=== PATIENT | male | born 1945 | race Caucasian/White ===

== ENCOUNTER → 2019-09-15 | Outpatient (CLI) | payer OTHER ==
--- NOTE | 2019-09-15 11:48 | REPVR ---
PROCEDURE INFORMATION: Exam: MR Cervical Spine Without Contrast Exam date and time: 09/15/2019 10:32 AM Age: 73 years old Clinical indication: Prior surgery; Surgery date: 6+ months; Patient HX: Chronic neck pain, HX fusion several years prior; Additional info: Cervicalgia TECHNIQUE: Imaging protocol: Multiplanar magnetic resonance images of the cervical spine without intravenous contrast. COMPARISON: CR Spine,Cervical 2 or 3 views 11/12/2014 5:19 PM FINDINGS: Exam is somewhat degraded by patient motion artifact, particularly on the axial sequences. C3-C4 and C6-C7 anterior fusion hardware is in place, causing regional streak artifact. There is straightening of the normal cervical lordosis. No spondylolisthesis or compression fractures. Mild multilevel degenerative disc disease with reactive endplate signal changes most pronounced at C7-T1. Marrow signal is otherwise normal. There is no convincing cervical spinal cord signal abnormality within constraints of motion artifact, several areas of questionable cord signal abnormality on the axial sequences are not confidently present on the sagittal sequences which are less motion degraded. At C2-C3, a small posterior disc osteophyte complex is present. Minimal spinal canal narrowing. Mild left neural foraminal narrowing. There is bilateral facetitis with periarticular and marrow edema and small joint effusions. At C3-C4, posterior disc osteophyte complex is present with moderate spinal canal narrowing. Severe bilateral neural foraminal narrowing from uncovertebral and facet hypertrophy. At C4-C5, posterior disc osteophyte complex is present with a moderate spinal canal narrowing. Moderate bilateral neural foraminal narrowing from uncovertebral and facet hypertrophy. At C5-C6, posterior discogenic osteophytes are present with mild spinal canal narrowing. Severe right and moderate left neural foraminal narrowing from uncovertebral and facet hypertrophy. At C6-C7, uncovertebral and ligamentum flavum hypertrophy are present, with mild spinal canal narrowing. Moderate to severe bilateral neural foraminal narrowing. At C7-T1, discogenic osteophytes and ligamentum flavum hypertrophy are present, with moderate to severe spinal canal narrowing. Severe bilateral neural foraminal narrowing. IMPRESSION: Multilevel cervical spine degenerative change most pronounced at C7-T1 with moderate to severe spinal canal narrowing, at C3-C4 and C4-C5 with moderate spinal canal narrowing, and multiple levels of moderate and severe neural foraminal narrowing. There is bilateral facetitis at C2-C3 with periarticular and marrow edema and small joint effusions. Electronically signed by: Bruno Gomez On 09/15/2019 11:47:45 AM
== END ==
LOC: M RAD 08:51
PROVIDERS: ATTEND Family Medicine
DX: M54.2 Cervicalgia (principal)

== ENCOUNTER 2020-09-26 15:16 | Inpatient (IN) | payer OTHER ==
[~2020-09-26] VITALS: Ht 177.8 cm; Wt 76.1 kg
--- NOTE | 2020-09-26 16:01 | REP ---
INDICATION: Altered Mental Status. COMPARISON: None TECHNIQUE: Portable AP view of the chest with the patient sitting. FINDINGS: The lung alexander are clear. Cardiac size is normal. The ethel, mediastinum and skeletal structures are unremarkable. IMPRESSION: Essentially negative portable chest <Electronically signed by Yuri Ochoa > 09/26/20 [id number]
--- NOTE | 2020-09-26 16:18 | REP ---
INDICATION: Altered Mental Status. COMPARISON: None. TECHNIQUE: CT BRAIN PERFORMED IN THE AXIAL PLANE. CORONAL RECONSTRUCTION IMAGES ARE PERFORMED. FINDINGS: There is moderate atrophy. There is periventricular white matter lucency most consistent with chronic periventricular small vessel ischemic change. Focal rounded hypodensities in the right caudate are most consistent with old lacunar infarcts. There appears to be a tiny lacunar infarct in the left basal ganglia. There is no acute intracranial hemorrhage, midline shift or mass effect. No extra-axial fluid collection is seen. The visualized paranasal sinuses and mastoid air cells are clear. IMPRESSION: Chronic ischemic changes with atrophy. No acute intracranial hemorrhage, midline shift or mass effect. <Electronically signed by Yuri Rosen > 09/26/20 [id number]
[2020-09-26 16:35] LABS: BASO % 0.5 % (0.0-1.0); EOS % 0.5 % (0.0-3.0); HEMATOCRIT 35.3 % (42.0-52.0); HEMOGLOBIN 12.1 g/dl (13.5-17.5); LYMPH % 12.5 % (24.0-44.0); MEAN CORPUSCULAR HEMOGLOBIN 30.9 pg (27.0-33.0); MEAN CORPUSCULAR HGB CONC 34.3 g/dl (32.0-36.5); MEAN CORPUSCULAR VOLUME 90.3 fl (80.0-96.0); MONO # 0.8 10^3/uL (0.0-0.8); MONO % 10.5 % (2.0-8.0); NEUTROPHILS # 5.8 10^3/uL (1.5-8.5); NEUTROPHILS % 75.6 % (36.0-66.0); PLATELET COUNT, AUTOMATED 263 10^3/uL (150-450); RED BLOOD COUNT 3.91 10^6/uL (4.30-6.10); WHITE BLOOD COUNT 7.6 10^3/uL (4.0-10.0)
[2020-09-26 17:10] LABS: ALBUMIN 3.2 GM/DL (3.2-5.2); ALT/SGPT 42 U/L (12-78); BILIRUBIN,DIRECT 0.1 MG/DL (0.0-0.2); BILIRUBIN,TOTAL 0.4 MG/DL (0.2-1.0); BLOOD UREA NITROGEN 31 MG/DL (7-18); CALCIUM LEVEL 8.6 MG/DL (8.8-10.2); CARBON DIOXIDE LEVEL 26 MEQ/L (21-32); CHLORIDE LEVEL 105 MEQ/L (98-107); CK-MB VALUE MASS 1.2 NG/ML (<3.6); CPK CREATINE PHOSPHOKINASE 56 U/L (39-308); CREATININE FOR GFR 1.32 MG/DL (0.70-1.30); GLOMERULAR FILTRATION RATE 56.4 (>42); GLUCOSE, FASTING 64 MG/DL (70-100); MB/CK RELATIVE INDEX 2.14 (< OR =4); POTASSIUM SERUM 4.1 MEQ/L (3.5-5.1); SODIUM LEVEL 138 MEQ/L (136-145); TOTAL PROTEIN 6.4 GM/DL (6.4-8.2); TROPONIN I < 0.02 NG/ML (< 0.10)
[2020-09-26] MEDS ORDERED: VALA1TAB5 PO (17:57)
[2020-09-26] MEDS ORDERED: CEPH500C PO (17:57)
[2020-09-26 19:40] LABS: RSV AMPLIFICATION NEGATIVE (NEGATIVE)
--- NOTE | 2020-09-26 19:46 | HPEPDOC ---
General Date of Admission 09/26/20 Date of Service: Sep 26, 2020 Chief Complaint The patient is a 75-year-old male admitted with a reason for visit of low blood sugar. Source: Patient, RN/MD History of Present Illness 75 year old male with PMH of DM, HTN , PTSD, BPH, CAD x stents in 2010, neck pain, Cervical spinal stenosis was brought in today has he was having weakness on the left and slurring of speech and confusion at about 1:30 pm when daughter went to wake hm up from a nap to give him lunch . He had a visit with his PMD at [facility] this morning and after returning from the appointment he was taking a nap. His last oral intake was a hot dog last night and he did not want any breakfast. At around 1:30 pm he could not ambulate and had to be helped by his children with 2 persons assisting to get him out of bed to the living room. His speech was slurred and they could not understand it. Has been recently diagnosed with shingles of the right chest wall 3 days ago. For the past 3 days he has been using a walker also. Daughter also mentions that she has noticed 2 months of severe memory problems, talking slower, lost weight, appetite decreasing. She says " her father is not like her father anymore". He had pain in the back of chest right 7 days ago so starting using heating pad, dermatomal blisters appeared 3 days ago went to [facility] was started on valcyclovir and cephalexin. Since getting out of [facility] he has needed a walker to ambulate. He was admitted for hypoglycemia and TIA rule out possible stroke. Home Medications Scheduled Cephalexin (Cephalexin) 500 Mg Capsule, 500 MG PO TID, (Reported) STARTED 09/25/20 FOR SEVEN DAYS Valacyclovir HCl (Valacyclovir) 1,000 Mg Tablet, 1 GM PO TID, (Reported) STARTED 09/25/20 FOR SEVEN DAYS Allergies Coded Allergies: No Known Drug Allergies (Verified Allergy, Unknown, 09/26/20) Past Medical History Medical History DM, HTN , PTSD, BPH, CAD x stents in 2010, neck pain, Cervical spinal stenosis. Surgical History Cervical spinal surgeries x 2 Family History Mother 3 years ago had Dementia Father stroke Social History * Smoker: Denies, former Smoker (quit in 1986) Alcohol: Denies Drugs: denies A-FIB/CHADSVASC A-FIB History Current/History of A-Fib/PAF?: No Review of Systems Constitutional: Reports: Weakness, Weight Loss; Denies: Chills, Fever, Night Sweats Eyes: Denies: Pain, Vision change ENT: Denies: Head Aches, Ear Pain, Dysphagia Skin: Denies: Rash, Lesions, Breakdown Pulmonary: Denies: Dyspnea, Cough Cardiovascular: Denies: Chest Pain, Palpitations, Orthopnea, Paroxysmal Noc. Dyspnea, Lt Headedness Gastrointestinal: Denies: Nausea, Vomiting, Abdominal Pain, Diarrhea Musculoskeletal: Reports: Neck Pain Neurological: Reports: Weakness, Change in speech, Confusion Psych: Reports: Memory Issues Physical Examination General Exam: Positive: Alert, Cooperative, No Acute Distress Eye Exam: Positive: PERRLA, Conjunctiva & lids normal, EOMI; Negative: Sclera icteric ENT Exam: Positive: Atraumatic, Mucous membr. moist/pink, Pharynx Normal Neck Exam: Positive: Supple; Negative: JVD, thyromegaly Chest Exam: Positive: Clear to auscultation, Normal air movement Heart Exam: Positive: Rate Normal, Regular Rhythm, Normal S1, Normal S2; Negative: Murmurs, Rubs Abdomen Exam: Positive: Normal bowel sounds, Soft; Negative: Tenderness, Hepatospenomegaly Extremity Exam: Positive: Normal pulses; Negative: Clubbing, Cyanosis, Edema Laboratory Data Labs 24H Laboratory Tests 2 09/26/20 16:10: Immature Granulocyte % (Auto) 0.4, Neutrophils (%) (Auto) 75.6H, Lymphocytes (%) (Auto) 12.5L, Monocytes (%) (Auto) 10.5H, Eosinophils (%) (Auto) 0.5, Basophils (%) (Auto) 0.5, Neutrophils # (Auto) 5.8, Lymphocytes # (Auto) 1.0L, Monocytes # (Auto) 0.8, Eosinophils # (Auto) 0.0, Basophils # (Auto) 0.0, Nucleated Red Blood Cells % (auto) 0.0, Anion Gap 7L, Glomerular Filtration Rate 56.4, Calcium Level 8.6L, Total Bilirubin 0.4, Direct Bilirubin 0.1, Aspartate Amino Transf (AST/SGOT) 29, Alanine Aminotransferase (ALT/SGPT) 42, Alkaline Phosphatase 41L, Total Creatine Kinase 56, Creatine Kinase MB 1.2, Creatine Kinase MB Relative Index 2.14, Troponin I < 0.02, Total Protein 6.4, Albumin 3.2, Albumin/Globulin Ratio 1.0, Thyroid Stimulating Hormone (TSH) 1.080 09/26/20 16:12: Bedside Glucose (Misc Panel) 58L 09/26/20 16:38: Bedside Glucose (Misc Panel) 53L 09/26/20 17:15: Bedside Glucose (Misc Panel) 62L CBC/BMP Laboratory Tests 09/26/20 16:10 Assessment/Plan 75 year old male with PMH of DM, HTN , PTSD, BPH, CAD x stents in 2010, neck pain, Cervical spinal stenosis, recently diagnosed with herpes zoster of the right chest wall, was brought in today has he was having weakness on the left and slurring of speech and confusion at about 1:30 pm when daughter went to wake him up from a nap to give him lunch. For the past 3 days he has been having difficulty in ambulation and using a walker. Daughter also reported that for the past 2 months he has been having memory problems, talking slower, lost weight, appetite decreasing. He was found to be hypoglyceic in the 50s. He was admitted for hypoglycemia and TIA rule out possible stroke. Hypoglycemia will start dextrose infusion hypoglycemic protocol FS q4 hours. TIA/Stroke CT head negative will get MRI and MRA brain, carotid doppler, echo with bubble study. doppler of legs also if MRI positive for multiple strokes. will start on ASA and stain if positive for stroke. Cervical spinal stenosis moderate to severe. Now with difficulty in ambulation had cervical surgeries in the past PT/OT, fall precautions. DM hypoglycemic hold all antidiabetic meds Hypertension Bp not elevated . It is in the normal range. not on any medications at present Herpes Zoster of the right chest wall started on valcyclovir on 09/23/20 will continue. also on cephalexin for secondary infection will continue. Plan / VTE VTE Prophylaxis Ordered?: Yes MARY GUTIERREZ MD Sep 26, 2020 17:29
--- NOTE | 2020-09-26 20:18 | REP ---
INDICATION: TIA COMPARISON: None. TECHNIQUE: Real-time ultrasound evaluation and duplex Doppler interrogation of the extracranial carotid vasculature is performed. FINDINGS: Antegrade flow is observed in both vertebral arteries. Right carotid: The right common carotid artery shows diffuse intimal thickening but is otherwise unremarkable. There ismild mixed plaquing in the right carotid bulb and proximal ICA on two-dimensional scanning. Color flow and spectral Doppler interrogation are unremarkable on the right. Velocity chart right carotid: Right CCA PSV: 67 cm/S Right ICA PSV: 60 cm/S Right ICA EDV: 13 cm/S Right ECA PSV: 77 cm/S Right ICA/CCA ratio: 0.9 Left carotid: The left common carotid artery shows diffuse intimal thickening but is otherwise unremarkable. There is mild mixed plaquing in the left carotid bulb and proximal ICA on two-dimensional scanning. Color flow and spectral Doppler interrogation are unremarkable on the left. Velocity chart left carotid: Left CCA PSV: 78 cm/S Left ICA PSV: 72 cm/S Left ICA EDV: 7.3 cm/S Left ECA PSV: 77 cm/S Left ICA/CCA ratio: 0.9 IMPRESSION: Less than 50% category narrowing in the right internal carotid artery by Doppler velocity criteria. Less than 50% category narrowing in the left ICA by Doppler velocity criteria. <Electronically signed by Jim Fontaine > 09/26/202013
[2020-09-26 21:45] VITALS: BP 119/76
[2020-09-26] MEDS: D5W 1,000 ML IV SCH (22:00)
[2020-09-26] MEDS: CEPHALEXIN 500 MG CAP PO SCH (22:09)
[2020-09-26] MEDS: valACYclovir HCL 500 MG TAB PO SCH (22:09)
[2020-09-26] MEDS ORDERED: DEXTROSE 50% 50 ML SYRINGE As Ordered ONE (22:31)
--- NOTE | 2020-09-26 22:38 | ECGEPIP ---
[facility] - ED Test Date: 2020-09-26 Pat Name: NATY KASPER Department: Room: - Gender: Male Manager Instrumentation: MABEL : 1945 Requested By: Ligia Iverson Order Number: [id number] Reading MD: Matthew Rebolledo Measurements Intervals [place] Rate: 79 P: 67 WA: 138 QRS: -9 QRSD: 84 T: 68 QT: 346 QTc: 396 Interpretive Statements Sinus rhythm with frequent premature ventricular complexes Nonspecific T wave abnormality Comparison tracing not on file Electronically Signed on 09-26-2020 22:38:23 EDT by Matthew Rebolledo
[2020-09-26] MEDS ORDERED: GLUCAGON INJ 1MG VIAL SC PRN (22:40)
[2020-09-26] MEDS ORDERED: GLUCOSE 4GM CHEW TABLET PO PRN (22:40)
[2020-09-26] MEDS ORDERED: DEXTROSE 50% 50 ML SYRINGE IV PRN (22:40)
--- NOTE | 2020-09-26 23:01 | REPVR ---
PROCEDURE INFORMATION: Exam: MR Head Without Contrast Exam date and time: 09/26/2020 9:54 PM Age: 75 years old Clinical indication: Altered mental status/memory loss; Confusion or disorientation; Additional info: Tia/stroke TECHNIQUE: Imaging protocol: MR of the head without contrast. COMPARISON: CT Head without contrast 2020-09-26 15:44 FINDINGS: Brain: Several small recent appearing lacunar infarcts including in the left parietal lateral subcortical white matter, right caudate and putaminal region, and left globus pallidus/putaminal junction. Moderate cerebral volume loss. Moderate severe chronic T2 signal hyperintensity within the white matter. Minimal if any corresponding ADC hypointensity to the regions of diffusion restriction. Chronic corpus callosal anterior infarct. Intrinsic T1 shortening within the right basal ganglia compatible with mineralization. Numerous chronic right basal ganglia lacunar infarcts. Cerebral ventricles: Normal. No ventriculomegaly. Bones/joints: Unremarkable. Paranasal sinuses: Normal as visualized. No acute sinusitis. Mastoid air cells: Normal as visualized. No mastoid effusion. Orbital cavity: Unremarkable. Soft tissues: Unremarkable. IMPRESSION: Several small recent acute/subacute appearing lacunar infarcts including in the left parietal lateral subcortical white matter, right caudate and putaminal region, and left globus pallidus/putaminal junction. Electronically signed by: Matthew Thomas On 09/26/2020 23:00:41 PM
--- NOTE | 2020-09-26 23:03 | REPVR ---
PROCEDURE INFORMATION: Exam: MR Angiogram Head Without Contrast, Arteries Exam date and time: 09/26/2020 9:54 PM Age: 75 years old Clinical indication: Dizziness and giddiness; Additional info: Tia/stroke, mri on neck please add on. TECHNIQUE: Imaging protocol: MR angiogram head without contrast. Exam focused on the arteries. COMPARISON: CT Head without contrast 2020-09-26 15:44 FINDINGS: ANTERIOR CIRCULATION: Right internal carotid artery: Intracranial segment is patent with no significant stenosis. No aneurysm. Right middle cerebral artery: Mild right MCA stenosis. Right anterior cerebral artery: Aplastic right SANJUANA A1 segment with a large anterior communicating artery supplying the A2 segment. Left internal carotid artery: Intracranial segment is patent with no significant stenosis. No aneurysm. Left middle cerebral artery: Moderate left MCA M2 branch stenosis. Left anterior cerebral artery: No occlusion or significant stenosis. No aneurysm. POSTERIOR CIRCULATION: Right vertebral artery: Mild right vertebral artery atherosclerotic disease and mild to moderate stenosis with the right vertebral artery terminating in the PICA branch. Left vertebral artery: No occlusion or significant stenosis. No aneurysm. Basilar artery: No occlusion or significant stenosis. No aneurysm. Right posterior cerebral artery: Severe stenosis/near occlusion within the right [employer] P2 segment in the ambient cistern on image 1 series 901 for a short segment of a couple mm. Left posterior cerebral artery: No occlusion or significant stenosis. No aneurysm. IMPRESSION: 1. Mild right vertebral artery atherosclerotic disease and mild to moderate stenosis with the right vertebral artery terminating in the PICA branch. 2. 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 3. Moderate left MCA M2 branch stenosis. Mild right MCA stenosis. 4. Severe stenosis/near occlusion within the right [employer] P2 segment in the ambient cistern on image 1 series 901 for a short segment of a couple mm. Electronically signed by: Matthew Thomas On 09/26/2020 23:03:42 PM
[2020-09-27 06:00] VITALS: BP 127/76
[2020-09-27 06:29] LABS: BASO # 0.1 10^3/uL (0.0-0.2); BASO % 0.9 % (0.0-1.0); EOS # 0.2 10^3/uL (0.0-0.5); EOS % 2.2 % (0.0-3.0); HEMATOCRIT 33.7 % (42.0-52.0); HEMOGLOBIN 11.6 g/dl (13.5-17.5); LYMPH # 0.9 10^3/uL (1.5-5.0); LYMPH % 11.5 % (24.0-44.0); MEAN CORPUSCULAR HEMOGLOBIN 30.6 pg (27.0-33.0); MEAN CORPUSCULAR HGB CONC 34.4 g/dl (32.0-36.5); MEAN CORPUSCULAR VOLUME 88.9 fl (80.0-96.0); MONO % 12.3 % (2.0-8.0); NEUTROPHILS % 72.7 % (36.0-66.0); PLATELET COUNT, AUTOMATED 264 10^3/uL (150-450); RED BLOOD COUNT 3.79 10^6/uL (4.30-6.10); WHITE BLOOD COUNT 8.2 10^3/uL (4.0-10.0)
[2020-09-27 06:43] LABS: HEMOGLOBIN A1c 6.1 %
[2020-09-27 07:00] LABS: BLOOD UREA NITROGEN 25 MG/DL (7-18); CALCIUM LEVEL 8.7 MG/DL (8.8-10.2); CARBON DIOXIDE LEVEL 24 MEQ/L (21-32); CHLORIDE LEVEL 107 MEQ/L (98-107); CREATININE FOR GFR 1.25 MG/DL (0.70-1.30); GLOMERULAR FILTRATION RATE > 60.0 (>42); GLUCOSE, FASTING 57 MG/DL (70-100); POTASSIUM SERUM 3.8 MEQ/L (3.5-5.1); SODIUM LEVEL 136 MEQ/L (136-145)
[2020-09-27 07:03] LABS: CHOLESTEROL RISK RATIO 4.937 (<5)
[2020-09-27] MEDS: ENOXAPARIN 40MG/0.4ML SYRINGE (J1650 PER 10MG) SC SCH (09:37)
[2020-09-27] MEDS: ASPIRIN 81 MG CHEW TABLET PEG SCH (09:37)
[2020-09-27] MEDS: valACYclovir HCL 500 MG TAB PO SCH ×3 (09:37→21:05)
[2020-09-27] MEDS: CEPHALEXIN 500 MG CAP PO SCH ×3 (09:37→21:05)
[2020-09-27] MEDS: ATORVASTATIN 20 MG TAB PO SCH (09:37)
[2020-09-27] MEDS: D5W 1,000 ML IV SCH (09:38)
[2020-09-27 10:00] VITALS: BP 130/69
[2020-09-27] MEDS: DEXTROSE 50% 50 ML SYRINGE IV SCH ×3 (12:14→21:05)
[2020-09-27 14:00] VITALS: BP 152/88
[2020-09-27] MEDS ORDERED: CLOPIDOGREL 75 MG TAB PO ONE (18:30)
--- NOTE | 2020-09-27 21:04 | IPNPDOC ---
Subjective Date Seen The patient was seen on 09/27/20. Subjective Chief Complaint/HPI Continues to have hypoglycemia requiring 50% dex injections. MRI shows multiple lacunar infarcts acute and subacute on both the right and left sides. MRA shows stenosis in multiple intracerebral vessels. Working with PT. Does not have any weakness, does not have any swallowing difficulties. Objective Physical Examination General Exam: Positive: Alert, Cooperative, No Acute Distress Eye Exam: Positive: PERRLA, Conjunctiva & lids normal, EOMI; Negative: Sclera icteric ENT Exam: Positive: Atraumatic, Mucous membr. moist/pink, Pharynx Normal Neck Exam: Positive: Supple; Negative: JVD, thyromegaly Chest Exam: Positive: Clear to auscultation, Normal air movement Heart Exam: Positive: Rate Normal, Regular Rhythm, Normal S1, Normal S2; Negative: Murmurs, Rubs Abdomen Exam: Positive: Normal bowel sounds, Soft; Negative: Tenderness, Hepatospenomegaly Extremity Exam: Negative: Clubbing, Cyanosis, Edema Neuro Exam: Positive: Normal Speech, Strength at 5/5 X4 ext, Normal Tone Assessment /Plan Assessment 75 year old male with PMH of DM, HTN , PTSD, BPH, CAD x stents in 2010, neck pain, Cervical spinal stenosis, recently diagnosed with herpes zoster of the right chest wall, was brought in today has he was having weakness on the left and slurring of speech and confusion at about 1:30 pm when daughter went to wake him up from a nap to give him lunch. For the past 3 days he has been having difficulty in ambulation and using a walker. Daughter also reported that for the past 2 months he has been having memory problems, talking slower, lost weight, appetite decreasing. He was found to be hypoglyceic in the 50s. He was admitted for hypoglycemia and TIA rule out possible stroke. Persistent Hypoglycemia a1c 6.1 as per daughter used to be over 9.0 few months ago Has been having low appetite for at least 2 months and has lost weight more than 10 lbs. Used to be 180 lbs. FS q4 hours. Continue 50% dextrose 25 ml q 4 hours with hold parameters. Acute ischemic Strokes MRI shows Several small recent acute/subacute appearing lacunar infarcts including in the left parietal lateral subcortical white matter, right caudate and putaminal region, and left globus pallidus/putaminal junction MRA showed 1. Mild right vertebral artery atherosclerotic disease and mild to moderate stenosis with the right vertebral artery terminating in the PICA branch. 2. 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 3. Moderate left MCA M2 branch stenosis. Mild right MCA stenosis. 4. Severe stenosis/near occlusion within the right [place] P2 segment in the ambient cistern on image 1 series 901 for a short segment of a couple mm. Carotid doppler < 50% occlusion in both sides. Bubble study negative telemetry no arrhythmias till now. Discussed with Dr Portillo. He thinks that these are embolic strokes will double antiplatelet and statin started on ASA and Plavix and statin. Cervical spinal stenosis moderate to severe. Now with difficulty in ambulation had cervical surgeries in the past PT/OT, fall precautions. DM hypoglycemic hold all antidiabetic meds Hypertension will allow permissive hypertension of SBP 140 to 180 Bp remains in appropriate range not on any medications at present Herpes Zoster of the right chest wall started on valcyclovir on 09/25/20 will continue. also on cephalexin for secondary infection will continue. Plan/VTE VTE Prophylaxis Ordered?: Yes VS, I&O, 24H, Fishbone Vital Signs/I&O Vital Signs Date Time Temp Pulse Resp B/P (MAP) Pulse Ox O2 Delivery O2 Flow Rate FiO2 09/27/20 14:00 97.9 82 18 152/88 (109) 96 Room Air I&O- Last 24 Hours up to 6 AM 09/27/20 06:59 Intake Total 200 ml Balance 200 ml Laboratory Data 24H LABS Laboratory Tests 2 09/26/20 21:54: Bedside Glucose (Misc Panel) 33*L 09/26/20 22:14: Bedside Glucose Confirm (Misc) 53 09/26/20 22:27: Bedside Glucose (Misc Panel) 38*L 09/26/20 22:57: Bedside Glucose (Misc Panel) 78L 09/27/20 02:25: Bedside Glucose (Misc Panel) 40L 09/27/20 02:43: Bedside Glucose Confirm (Misc) 44 09/27/20 03:17: Bedside Glucose (Misc Panel) 57L 09/27/20 03:53: Bedside Glucose (Misc Panel) 78L 09/27/20 05:54: Bedside Glucose (Misc Panel) 57L 09/27/20 06:13: Immature Granulocyte % (Auto) 0.4, Neutrophils (%) (Auto) 72.7H, Lymphocytes (%) (Auto) 11.5L, Monocytes (%) (Auto) 12.3H, Eosinophils (%) (Auto) 2.2, Basophils (%) (Auto) 0.9, Neutrophils # (Auto) 6.0, Lymphocytes # (Auto) 0.9L, Monocytes # (Auto) 1.0H, Eosinophils # (Auto) 0.2, Basophils # (Auto) 0.1, Nucleated Red Blood Cells % (auto) 0.0, Anion Gap 5L, Glomerular Filtration Rate > 60.0, Estimated Mean Plasma Glucose 128H, Hemoglobin A1c 6.1, Calcium Level 8.7L, Triglycerides Level 133, Total Cholesterol 158, LDL Cholesterol 99, Non-HDL Cholesterol (LDL + VLDL) 126, Total HDL Cholesterol 32L, Cholesterol/HDL Ratio 4.937 09/27/20 08:01: Bedside Glucose (Misc Panel) 54L 09/27/20 08:38: Bedside Glucose (Misc Panel) 61L 09/27/20 11:58: Bedside Glucose (Misc Panel) 87 09/27/20 16:25: Bedside Glucose (Misc Panel) 92 09/27/20 20:40: Bedside Glucose (Misc Panel) 101 CBC/BMP Laboratory Tests 09/27/20 06:13 MARY GUTIERREZ MD Sep 27, 2020 21:04
[2020-09-27 22:00] VITALS: BP 155/84
[2020-09-27] MEDS ORDERED: ACETAMINOPHEN TAB 650MG DOSE (2X325MG) PO ONE (23:40)
[2020-09-28] MEDS: DEXTROSE 50% 50 ML SYRINGE IV SCH ×7 (00:05→23:55)
[2020-09-28 06:00] VITALS: BP 143/74
[2020-09-28] MEDS ORDERED: ACETAMINOPHEN TAB 650MG DOSE (2X325MG) PO ONE (06:15)
[2020-09-28 06:27] LABS: BASO # 0.1 10^3/uL (0.0-0.2); BASO % 0.8 % (0.0-1.0); EOS # 0.2 10^3/uL (0.0-0.5); EOS % 1.9 % (0.0-3.0); HEMATOCRIT 34.4 % (42.0-52.0); HEMOGLOBIN 11.9 g/dl (13.5-17.5); LYMPH % 9.7 % (24.0-44.0); MEAN CORPUSCULAR HEMOGLOBIN 30.4 pg (27.0-33.0); MEAN CORPUSCULAR HGB CONC 34.6 g/dl (32.0-36.5); MONO # 1.1 10^3/uL (0.0-0.8); MONO % 10.4 % (2.0-8.0); NEUTROPHILS # 8.1 10^3/uL (1.5-8.5); NEUTROPHILS % 76.6 % (36.0-66.0); PLATELET COUNT, AUTOMATED 296 10^3/uL (150-450); RED BLOOD COUNT 3.91 10^6/uL (4.30-6.10); WHITE BLOOD COUNT 10.6 10^3/uL (4.0-10.0)
[2020-09-28 06:57] LABS: BLOOD UREA NITROGEN 20 MG/DL (7-18); CALCIUM LEVEL 8.6 MG/DL (8.8-10.2); CARBON DIOXIDE LEVEL 24 MEQ/L (21-32); CHLORIDE LEVEL 107 MEQ/L (98-107); GLOMERULAR FILTRATION RATE > 60.0 (>42); GLUCOSE, FASTING 147 MG/DL (70-100); POTASSIUM SERUM 4.2 MEQ/L (3.5-5.1); SODIUM LEVEL 137 MEQ/L (136-145)
[2020-09-28] MEDS: ASPIRIN 81 MG CHEW TABLET PEG SCH (08:40)
[2020-09-28] MEDS: ATORVASTATIN 20 MG TAB PO SCH (08:40)
[2020-09-28] MEDS: CEPHALEXIN 500 MG CAP PO SCH ×3 (08:40→20:00)
[2020-09-28] MEDS: CLOPIDOGREL 75 MG TAB PO SCH (08:41)
[2020-09-28] MEDS: valACYclovir HCL 500 MG TAB PO SCH ×3 (08:41→20:00)
[2020-09-28] MEDS: ENOXAPARIN 40MG/0.4ML SYRINGE (J1650 PER 10MG) SC SCH (08:41)
--- NOTE | 2020-09-28 10:34 | IPNPDOC ---
Subjective Date Seen The patient was seen on 09/28/20. Subjective Chief Complaint/HPI Sugars better today. Complains of right wrist pain. eating better, Objective Physical Examination General Exam: Positive: Alert, Cooperative, No Acute Distress Eye Exam: Positive: PERRLA, Conjunctiva & lids normal, EOMI; Negative: Sclera icteric ENT Exam: Positive: Atraumatic, Mucous membr. moist/pink, Pharynx Normal Neck Exam: Positive: Supple; Negative: JVD, thyromegaly Chest Exam: Positive: Clear to auscultation, Normal air movement Heart Exam: Positive: Rate Normal, Regular Rhythm, Normal S1, Normal S2; Negative: Murmurs, Rubs Abdomen Exam: Positive: Normal bowel sounds, Soft; Negative: Tenderness, Hepatospenomegaly Extremity Exam: Negative: Clubbing, Cyanosis, Edema Neuro Exam: Positive: Normal Speech, Strength at 5/5 X4 ext, Normal Tone Assessment /Plan Assessment 75 year old male with PMH of DM, HTN , PTSD, BPH, CAD x stents in 2010, neck pain, Cervical spinal stenosis, recently diagnosed with herpes zoster of the right chest wall, was brought in today has he was having weakness on the left and slurring of speech and confusion at about 1:30 pm when daughter went to wake him up from a nap to give him lunch. For the past 3 days he has been having difficulty in ambulation and using a walker. Daughter also reported that for the past 2 months he has been having memory problems, talking slower, lost weight, appetite decreasing. He was found to be hypoglycemic in the 50s. He was admitted for hypoglycemia and TIA rule out possible stroke. Persistent Hypoglycemia a1c 6.1. As per daughter used to be over 9.0 few months ago Has been having low appetite for at least 2 months and has lost weight more than 10 lbs. Used to be 180 lbs. FS q4 hours. Continue 50% dextrose 25 ml q 4 hours with hold parameters. Acute ischemic Strokes MRI shows Several small recent acute/subacute appearing lacunar infarcts including in the left parietal lateral subcortical white matter, right caudate and putaminal region, and left globus pallidus/putaminal junction MRA showed 1. Mild right vertebral artery atherosclerotic disease and mild to moderate stenosis with the right vertebral artery terminating in the PICA branch. 2. Aplastic right SANJAUNA A1 segment with a large anterior communicating artery supplying the A2 segment. 3. Moderate left MCA M2 branch stenosis. Mild right MCA stenosis. 4. Severe stenosis/near occlusion within the right [employer]ING P2 segment in the ambient cistern on image 1 series 901 for a short segment of a couple mm. Carotid doppler < 50% occlusion in both sides. Bubble study negative telemetry no arrhythmias till now. Discussed with Dr Portillo. He thinks that these are embolic strokes will need double antiplatelet and statin started on ASA and Plavix and statin. Will need referral to Cardiology for assessment for loop recorder placement. [facility] so may need [facility] for specialist visits. Cervical spinal stenosis moderate to severe. Now with difficulty in ambulation had cervical surgeries in the past PT/OT, fall precautions. DM hypoglycemic hold all antidiabetic meds Hypertension will allow permissive hypertension of SBP 140 to 180 Bp remains in appropriate range not on any medications at present Herpes Zoster of the right chest wall started on valcyclovir on 09/25/20 will continue. also on cephalexin for secondary infection will continue. Plan/VTE VTE Prophylaxis Ordered?: Yes VS, I&O, 24H, [facility] Vital Signs/I&O Vital Signs Date Time Temp Pulse Resp B/P (MAP) Pulse Ox O2 Delivery O2 Flow Rate FiO2 09/28/20 06:00 98.1 83 17 143/74 (97) 99 Room Air I&O- Last 24 Hours up to 6 AM 09/28/20 06:00 Intake Total 1305 ml Balance 1305 ml Laboratory Data 24H LABS Laboratory Tests 2 09/27/20 11:58: Bedside Glucose (Misc Panel) 87 09/27/20 16:25: Bedside Glucose (Misc Panel) 92 09/27/20 20:40: Bedside Glucose (Misc Panel) 101 09/28/20 00:04: Bedside Glucose (Misc Panel) 108 09/28/20 04:16: Bedside Glucose (Misc Panel) 108 09/28/20 06:13: Immature Granulocyte % (Auto) 0.6, Neutrophils (%) (Auto) 76.6H, Lymphocytes (%) (Auto) 9.7L, Monocytes (%) (Auto) 10.4H, Eosinophils (%) (Auto) 1.9, Basophils (%) (Auto) 0.8, Neutrophils # (Auto) 8.1, Lymphocytes # (Auto) 1.0L, Monocytes # (Auto) 1.1H, Eosinophils # (Auto) 0.2, Basophils # (Auto) 0.1, Nucleated Red Blood Cells % (auto) 0.0, Anion Gap 6L, Glomerular Filtration Rate > 60.0, Calcium Level 8.6L 09/28/20 08:03: Bedside Glucose (Misc Panel) 135H CBC/BMP Laboratory Tests 09/28/20 06:13 MARY GUTIERREZ MD Sep 28, 2020 10:34
[2020-09-28 14:00] VITALS: BP 146/77
[2020-09-28 22:00] VITALS: BP 155/85
[2020-09-29] MEDS: DEXTROSE 50% 50 ML SYRINGE IV SCH ×3 (04:00→12:00)
[2020-09-29 06:00] VITALS: BP 133/77
[2020-09-29 06:12] LABS: BASO # 0.1 10^3/uL (0.0-0.2); BASO % 0.8 % (0.0-1.0); EOS % 0.4 % (0.0-3.0); HEMATOCRIT 36.5 % (42.0-52.0); HEMOGLOBIN 12.3 g/dl (13.5-17.5); LYMPH # 1.3 10^3/uL (1.5-5.0); MEAN CORPUSCULAR HEMOGLOBIN 30.1 pg (27.0-33.0); MEAN CORPUSCULAR HGB CONC 33.7 g/dl (32.0-36.5); MEAN CORPUSCULAR VOLUME 89.5 fl (80.0-96.0); MONO # 1.4 10^3/uL (0.0-0.8); MONO % 12.9 % (2.0-8.0); NEUTROPHILS # 7.8 10^3/uL (1.5-8.5); NEUTROPHILS % 73.1 % (36.0-66.0); PLATELET COUNT, AUTOMATED 308 10^3/uL (150-450); RED BLOOD COUNT 4.08 10^6/uL (4.30-6.10); WHITE BLOOD COUNT 10.7 10^3/uL (4.0-10.0)
[2020-09-29 06:26] LABS: CALCIUM LEVEL 8.5 MG/DL (8.8-10.2); CREATININE FOR GFR 1.3 MG/DL (0.70-1.30); GLOMERULAR FILTRATION RATE 57.4 (>42)
--- NOTE | 2020-09-29 08:43 | ECHO ---
DATE OF PROCEDURE: 09/26/2020 Age: 74 Gender: Male Height: 177 cm Weight: 75.8 kg REFERRING PHYSICIAN: Maya Anthony MD INDICATION: Transient cerebral ischemia, unspecified. MEASUREMENTS: 2D Measurements: Left ventricle diastole 4.0 cm Intraventricular septum 1.24 cm Posterior wall 1.52 cm Left atrium 3.8 cm Aortic root 3.5 cm Doppler Measurements: No aortic stenosis No aortic regurgitation Aortic valve velocity 169 cm/s LVOT velocity 104 cm/s Trace mitral regurgitation Mitral E velocity 59.1 cm/s Mitral A velocity 75.5 cm/s Mitral deceleration time 248 msec Trace tricuspid regurgitation No pulmonic regurgitation Pulmonary artery acceleration time 106 msec MITRAL ANNULAR TISSUE DOPPLER E prime septal 4.1 cm/s, E prime lateral 8.8 cm/s DESCRIPTION: Rhythm was sinus. Image quality was good. This was a 2D, M-mode, color flow Doppler, and pulsed wave Doppler examination. Occasional PVCs. Technically difficult subcostal window. No pericardial effusion. CONCLUSIONS: 1. Mild concentric left ventricular hypertrophy. Normal regional LV wall motion and wall thickening. Normal LV systolic function. LVEF 65% by visual estimate. Grade 1 LV diastolic dysfunction. 2. Negative bubble study for detection of intracardiac shunting. 3. Suggestive of mild elevation of pulmonary artery systolic pressure. 4. Mild aortic valve sclerosis of a 3-cuspid aortic valve. No regurgitation. 5. Otherwise normal appearing echocardiogram Doppler findings. MTDD
[2020-09-29] MEDS: ENOXAPARIN 40MG/0.4ML SYRINGE (J1650 PER 10MG) SC SCH (09:00)
[2020-09-29] MEDS: valACYclovir HCL 500 MG TAB PO SCH ×3 (09:00→21:02)
[2020-09-29] MEDS: ATORVASTATIN 20 MG TAB PO SCH (09:01)
[2020-09-29] MEDS: CLOPIDOGREL 75 MG TAB PO SCH (09:01)
[2020-09-29] MEDS: ASPIRIN 81 MG CHEW TABLET PEG SCH (09:01)
[2020-09-29] MEDS: CEPHALEXIN 500 MG CAP PO SCH ×3 (09:01→21:02)
[2020-09-29] MEDS ORDERED: ATOR1TAB21 PO (11:37)
[2020-09-29] MEDS ORDERED: ASPI81CH8 PEG (11:37)
[2020-09-29] MEDS ORDERED: CLOP75TA2 PO (11:37)
--- NOTE | 2020-09-29 11:39 | DS.PDOC ---
Discharge Summary General Date of Admission Sep 27, 2020 at 20:42 Date of Discharge 09/29/2020 Attending Physician: TYLER TORRES MD Discharge Summary PROCEDURES PERFORMED DURING STAY: None ADMITTING DIAGNOSES: TIA DISCHARGE DIAGNOSES: Acute/subacute appearing lacunar ischemic infarcts including in the left parietal lateral subcortical white matter, right caudate and putaminal region, and left globus pallidus/putaminal junction, mostly likely embolic in nature. DM HTN PTSD BPH CAD x stents in 2010 Cervical spinal stenosis COMPLICATIONS/CHIEF COMPLAINT: Hypoglcemia,Tia. HISTORY OF PRESENT ILLNESS: 75 year old M with PMH of DM, HTN , PTSD, BPH, CAD x stents in 2010, neck pain, Cervical spinal stenosis was brought for acute weakness on the left and slurring of speech and confusion when daughter went to wake him up from a nap to give him lunch. He had a visit with his PMD at [place] on the morning of ED presentation and after returning from the appointment he took a nap. At around 1:30 pm on the day of presentation he could not ambulate and had to be helped by his children with 2 persons assisting to get him out of bed to the living room. His speech was slurred and they could not understand it. He had been recently diagnosed with shingles of the right chest wall 3 days prior. On further inquiry, daughter reported 2 months of severe memory problems, talking slower, lost weight and poor PO. He had pain in the back of right chest7 days and dermatomal blisters appeared 3 days prior to presentation and they went to [facility] were he was started on valcyclovir and cephalexin. Since getting out of [facility] he has needed a walker to ambulate. He was admitted at [facility] hypoglycemia and TIA rule out possible stroke. He had an MRI of brain that revealed multihemispheric lacunar infarcts that appeared embolic in nature, while MRA showed 1. Mild right vertebral artery atherosclerotic disease and mild to moderate stenosis with the right vertebral artery terminating in the PICA branch. 2. 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 3. Moderate left MCA M2 branch stenosis. Mild right MCA stenosis. 4. Severe stenosis/near occlusion within the right SUPER[employer]MENT P2 segment in the ambient cistern on image 1 series 901 for a short segment of a couple mm. Carotid doppler US showed < 50% occlusion in both sides and TTE with bubble study was negative for shunt physiology. Telemetry also maintained NSR. Neurology was consulted and Dr. Portillo recommended DAPT and ASA 81. He was continued on valcyclovir and cephalexin and he worked with PT/OT with improvement in speech and motor function. He is now being discharged home with home PT and close PCP follow up as well cardiology follow up for perhaps loop recorder given likely embolic stroke. DISCHARGE MEDICATIONS: Please see below. ALLERGIES: Please see below. PHYSICAL EXAMINATION ON DISCHARGE: VITAL SIGNS: Please see below. General: Alert, Cooperative, No Acute Distress Eyes: PERRLA, Conjunctiva & lids normal, EOMI, anicteric ENT: Atraumatic, Mucous membr. moist/pink, Pharynx Normal Neck: Supple, no JVD or thyromegaly Chest: Clear to auscultation, Normal air movement Heart: Rate Normal, Regular Rhythm, Normal S1, Normal S2, no m/r/g Abdomen: Normal bowel sounds, soft, NTND Extremities: No Clubbing, Cyanosis or Edema Neuro: Positive: Normal Speech, Strength at 5/5 X4 ext, Normal Tone and sensation LABORATORY DATA: Please see below. IMAGING: CT head: There is moderate atrophy. There is periventricular white matter lucency most consistent with chronic periventricular small vessel ischemic change. Focal rounded hypodensities in the right caudate are most consistent with old lacunar infarcts. There appears to be a tiny lacunar infarct in the left basal ganglia. There is no acute intracranial hemorrhage, midline shift or mass effect. No extra-axial fluid collection is seen. The visualized paranasal sinuses and mastoid air cells are clear. IMPRESSION: Chronic ischemic changes with atrophy. No acute intracranial hemorrhage, midline shift or mass effect. CXR: The lung alexander are clear. Cardiac size is normal. The ethel, mediastinum and skeletal structures are unremarkable. IMPRESSION: Essentially negative portable chest Brain MRI w/o contrast: Brain: Several small recent appearing lacunar infarcts including in the left parietal lateral subcortical white matter, right caudate and putaminal region, and left globus pallidus/putaminal junction. Moderate cerebral volume loss. Moderate severe chronic T2 signal hyperintensity within the white matter. Minimal if any corresponding ADC hypointensity to the regions of diffusion restriction. Chronic corpus callosal anterior infarct. Intrinsic T1 shortening within the right basal ganglia compatible with mineralization. Numerous chronic right basal ganglia lacunar infarcts. Cerebral ventricles: Normal. No ventriculomegaly. Bones/joints: Unremarkable. Paranasal sinuses: Normal as visualized. No acute sinusitis. Mastoid air cells: Normal as visualized. No mastoid effusion. Orbital cavity: Unremarkable. Soft tissues: Unremarkable. IMPRESSION: Several small recent acute/subacute appearing lacunar infarcts including in the left parietal lateral subcortical white matter, right caudate and putaminal region, and left globus pallidus/putaminal junction. Brain MRA w/o contrast: FINDINGS: ANTERIOR CIRCULATION: Right internal carotid artery: Intracranial segment is patent with no significant stenosis. No aneurysm. Right middle cerebral artery: Mild right MCA stenosis. Right anterior cerebral artery: Aplastic right SANJUANA A1 segment with a large anterior communicating artery supplying the A2 segment. Left internal carotid artery: Intracranial segment is patent with no significant stenosis. No aneurysm. Left middle cerebral artery: Moderate left MCA M2 branch stenosis. Left anterior cerebral artery: No occlusion or significant stenosis. No aneurysm. POSTERIOR CIRCULATION: Right vertebral artery: Mild right vertebral artery atherosclerotic disease and mild to moderate stenosis with the right vertebral artery terminating in the PICA branch. Left vertebral artery: No occlusion or significant stenosis. No aneurysm. Basilar artery: No occlusion or significant stenosis. No aneurysm. Right posterior cerebral artery: Severe stenosis/near occlusion within the right [employer]MENT P2 segment in the ambient cistern on image 1 series 901 for a short segment of a couple mm. Left posterior cerebral artery: No occlusion or significant stenosis. No aneurysm. IMPRESSION: 1. Mild right vertebral artery atherosclerotic disease and mild to moderate stenosis with the right vertebral artery terminating in the PICA branch. 2. 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 3. Moderate left MCA M2 branch stenosis. Mild right MCA stenosis. 4. Severe stenosis/near occlusion within the right [employer]PER[employer]MENT P2 segment in the ambient cistern on image 1 series 901 for a short segment of a couple mm. Carotid doppler US: Antegrade flow is observed in both vertebral arteries. Right carotid: The right common carotid artery shows diffuse intimal thickening but is otherwise unremarkable. There ismild mixed plaquing in the right carotid bulb and proximal ICA on two-dimensional scanning. Color flow and spectral Doppler interrogation are unremarkable on the right. Velocity chart right carotid: Right CCA PSV: 67 cm/S Right ICA PSV: 60 cm/S Right ICA EDV: 13 cm/S Right ECA PSV: 77 cm/S Right ICA/CCA ratio: 0.9 Left carotid: The left common carotid artery shows diffuse intimal thickening but is otherwise unremarkable. There is mild mixed plaquing in the left carotid bulb and proximal ICA on two-dimensional scanning. Color flow and spectral Doppler interrogation are unremarkable on the left. Velocity chart left carotid: Left CCA PSV: 78 cm/S Left ICA PSV: 72 cm/S Left ICA EDV: 7.3 cm/S Left ECA PSV: 77 cm/S Left ICA/CCA ratio: 0.9 IMPRESSION: Less than 50% category narrowing in the right internal carotid artery by Doppler velocity criteria. Less than 50% category narrowing in the left ICA by Doppler velocity criteria. PROGNOSIS: Good ACTIVITY: As tolerated DIET: 2g sodium DISCHARGE PLAN: Home with home PT, DAPT, PCP and cardiology follow up DISPOSITION: Home with services DISCHARGE INSTRUCTIONS: Home with home PT, DAPT, PCP and cardiology follow up ITEMS TO FOLLOWUP ON ON OUTPATIENT: Embolic lacunar CVAs DISCHARGE CONDITION: Stable TIME SPENT ON DISCHARGE: 46 minutes. Vital Signs/I&Os Vital Signs Date Time Temp Pulse Resp B/P (MAP) Pulse Ox O2 Delivery O2 Flow Rate FiO2 09/29/20 06:00 98.5 101 17 133/77 (95) 100 Room Air I&O- Last 24 Hours up to 6 AM 09/29/20 06:00 Intake Total 1620 ml Output Total 400 ml Balance 1220 ml Laboratory Data Labs 24H Laboratory Tests 2 09/28/20 11:47: Bedside Glucose (Misc Panel) 151H 09/28/20 15:52: Bedside Glucose (Misc Panel) 216H 09/28/20 19:46: Bedside Glucose (Misc Panel) 241H 09/28/20 23:41: Bedside Glucose (Misc Panel) 195H 09/29/20 04:07: Bedside Glucose (Misc Panel) 148H 09/29/20 05:34: Immature Granulocyte % (Auto) 0.8, Neutrophils (%) (Auto) 73.1H, Lymphocytes (%) (Auto) 12.0L, Monocytes (%) (Auto) 12.9H, Eosinophils (%) (Auto) 0.4, Basophils (%) (Auto) 0.8, Neutrophils # (Auto) 7.8, Lymphocytes # (Auto) 1.3L, Monocytes # (Auto) 1.4H, Eosinophils # (Auto) 0.0, Basophils # (Auto) 0.1, Nucleated Red Blood Cells % (auto) 0.0, Anion Gap 9, Glomerular Filtration Rate 57.4, Calcium Level 8.5L CBC/BMP Laboratory Tests 09/29/20 05:34 FSBS Laboratory Tests Test 09/28/20 11:47 09/28/20 15:52 09/28/20 19:46 09/28/20 23:41 Range/Units Bedside Glucose (Misc Panel) 151 216 241 195 83-110 MG/DL Test 09/29/20 04:07 Range/Units Bedside Glucose (Misc Panel) 148 83-110 MG/DL Discharge Medications Scheduled Aspirin (Children's Aspirin) 81 Mg Tab.chew, 81 MG PEG DAILY Atorvastatin Calcium (Atorvastatin Calcium) 20 Mg Tablet, 40 MG PO DAILY Cephalexin (Cephalexin) 500 Mg Capsule, 500 MG PO TID, (Reported) STARTED 09/25/20 FOR SEVEN DAYS Clopidogrel Bisulfate (Clopidogrel) 75 Mg Tablet, 75 MG PO DAILY Valacyclovir HCl (Valacyclovir) 1,000 Mg Tablet, 1 GM PO TID, (Reported) STARTED 09/25/20 FOR SEVEN DAYS Allergies Coded Allergies: No Known Drug Allergies (Verified Allergy, Unknown, 09/26/20) TYLER TORRES MD Sep 29, 2020 09:56
--- NOTE | 2020-09-29 11:40 | IPNPDOC ---
Text Note Date of Service The patient was seen on 09/29/20. NOTE Subjective -No acute complaints -Continues to have poor PO that has been ongoing for 2 months per HPI Objective Physical Examination General: Alert, Cooperative, No Acute Distress Eyes: PERRLA, Conjunctiva & lids normal, EOMI, anicteric ENT: Atraumatic, Mucous membr. moist/pink, Pharynx Normal Neck: Supple, no JVD or thyromegaly Chest: Clear to auscultation, Normal air movement Heart: Rate Normal, Regular Rhythm, Normal S1, Normal S2, no m/r/g Abdomen: Normal bowel sounds, soft, NTND Extremities: No Clubbing, Cyanosis or Edema Neuro: Normal Speech, Strength at 5/5 X4 ext, normal tone and sensation, AOx3 Labs: reviewed Assessment 75 year old M with DM, HTN , PTSD, BPH, CAD x stents in 2010, neck pain, Cervical spinal stenosis, recently diagnosed with herpes zoster of the right chest wall, who was brought in for acute weakness on the left and slurring of speech and confusion and found to have multiple acute ischemic lacunar infarcts. Acute ischemic Strokes -MRI shows Several small recent acute/subacute appearing lacunar infarcts including in the left parietal lateral subcortical white matter, right caudate and putaminal region, and left globus pallidus/putaminal junction -MRA showed 1. Mild right vertebral artery atherosclerotic disease and mild to moderate stenosis with the right vertebral artery terminating in the PICA branch. 2. 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 3. Moderate left MCA M2 branch stenosis. Mild right MCA stenosis. 4. Severe stenosis/near occlusion within the right MUD MIXER OPERATOR P2 segment in the ambient cistern on image 1 series 901 for a short segment of a couple mm. -Carotid doppler < 50% occlusion in both sides. -Bubble study negative -telemetry no arrhythmias till now. -Discussed with Dr Portillo. He thinks that these are embolic strokes -will need double antiplatelet and statin -started on ASA and Plavix and statin. -Will need referral to Cardiology for assessment for loop recorder placement. [facility] so may need referral [facility] for specialist visits. -PT/OT Cervical spinal stenosis -moderate to severe. Now with difficulty in ambulation -had cervical surgeries in the past -PT/OT, fall precautions. DM -hypoglycemic -hold all antidiabetic meds Persistent Hypoglycemia a1c 6.1. As per daughter used to be over 9.0 a few months prior -Has been having low appetite for at least 2 months and has lost weight more than 10 lbs. Used to be 180 lbs. -Continue 50% dextrose 25 ml q 4 hours with hold parameters. ypertension -will allow permissive hypertension of SBP 140 to 180 -Bp remains in appropriate range -not on any medications at present Herpes Zoster of the right chest wall -started on valcyclovir on 09/25/20 will continue. -also on cephalexin for secondary infection will continue. VS,Fishbone, I+O VS, Fishbone, I+O Laboratory Tests 09/29/20 05:34 Vital Signs Date Time Temp Pulse Resp B/P (MAP) Pulse Ox O2 Delivery O2 Flow Rate FiO2 09/29/20 06:00 98.5 101 17 133/77 (95) 100 Room Air I&O- Last 24 Hours up to 6 AM 09/29/20 06:00 Intake Total 1620 ml Output Total 400 ml Balance 1220 ml TYLER TORRES MD Sep 29, 2020 10:01
[2020-09-29 14:00] VITALS: BP 132/77
--- NOTE | 2020-09-29 18:54 | REP ---
INDICATION: Fall at home, pain, swelling. COMPARISON: None. TECHNIQUE: Four views of the right wrist. FINDINGS: Four views of the right wrist demonstrate soft tissue swelling dorsally about the carpus. There is extensive vascular calcification across the wrist along the palm are aspect. There is [id number] intercarpal joint and radiocarpal articulation osteoarthritis. Narrowing of the navicular lunate articulation is seen. There is no visible fracture or subluxation. Subcortical cyst formation is seen in several a carpal bones including navicula and capitate. IMPRESSION: Osteoarthritic changes. Diffuse vascular calcification. Soft tissue swelling dorsally. No fracture seen. <Electronically signed by Jim Fontaine > 09/29/20 6020
[2020-09-29 22:00] VITALS: BP 129/77
[2020-09-30 06:00] VITALS: BP 154/77
[2020-09-30 07:03] LABS: BASO # 0.1 10^3/uL (0.0-0.2); BASO % 0.9 % (0.0-1.0); EOS # 0.2 10^3/uL (0.0-0.5); EOS % 2.2 % (0.0-3.0); HEMATOCRIT 33.3 % (42.0-52.0); HEMOGLOBIN 11.5 g/dl (13.5-17.5); LYMPH % 12.6 % (24.0-44.0); MEAN CORPUSCULAR HEMOGLOBIN 30.7 pg (27.0-33.0); MEAN CORPUSCULAR HGB CONC 34.5 g/dl (32.0-36.5); MEAN CORPUSCULAR VOLUME 88.8 fl (80.0-96.0); MONO # 1.1 10^3/uL (0.0-0.8); MONO % 13.4 % (2.0-8.0); NEUTROPHILS # 5.8 10^3/uL (1.5-8.5); PLATELET COUNT, AUTOMATED 294 10^3/uL (150-450); RED BLOOD COUNT 3.75 10^6/uL (4.30-6.10); WHITE BLOOD COUNT 8.2 10^3/uL (4.0-10.0)
[2020-09-30 07:27] LABS: BLOOD UREA NITROGEN 22 MG/DL (7-18); CALCIUM LEVEL 8.5 MG/DL (8.8-10.2); CARBON DIOXIDE LEVEL 25 MEQ/L (21-32); CHLORIDE LEVEL 105 MEQ/L (98-107); CREATININE FOR GFR 1.22 MG/DL (0.70-1.30); GLOMERULAR FILTRATION RATE > 60.0 (>42); GLUCOSE, FASTING 160 MG/DL (70-100); POTASSIUM SERUM 3.8 MEQ/L (3.5-5.1); SODIUM LEVEL 136 MEQ/L (136-145)
[2020-09-30] MEDS: ASPIRIN 81 MG CHEW TABLET PEG SCH (09:15)
[2020-09-30] MEDS: valACYclovir HCL 500 MG TAB PO SCH ×2 (09:15→15:14)
[2020-09-30] MEDS: CLOPIDOGREL 75 MG TAB PO SCH (09:15)
[2020-09-30] MEDS: CEPHALEXIN 500 MG CAP PO SCH ×2 (09:15→15:14)
[2020-09-30] MEDS: ATORVASTATIN 20 MG TAB PO SCH (09:15)
[2020-09-30] MEDS: ENOXAPARIN 40MG/0.4ML SYRINGE (J1650 PER 10MG) SC SCH (09:16)
[2020-09-30 14:00] VITALS: BP 150/59
--- NOTE | 2020-09-30 16:18 | IPNPDOC ---
Text Note Date of Service The patient was seen on 09/30/20. NOTE Subjective -No acute complaints -Was going to be discharged home with services and home PT yesterday but there was a [facility] in [facility] so was deferred to today. Objective Physical Examination General: Alert, Cooperative, No Acute Distress Eyes: PERRLA, Conjunctiva & lids normal, EOMI, anicteric ENT: Atraumatic, Mucous membr. moist/pink, Pharynx Normal Neck: Supple, no JVD or thyromegaly Chest: Clear to auscultation, Normal air movement Heart: Rate Normal, Regular Rhythm, Normal S1, Normal S2, no m/r/g Abdomen: Normal bowel sounds, soft, NTND Extremities: No Clubbing, Cyanosis or Edema Neuro: Normal Speech, Strength at 5/5 X4 ext, normal tone and sensation, AOx3 Labs: reviewed Assessment 75 year old M with DM, HTN , PTSD, BPH, CAD x stents in 2010, neck pain, Cervical spinal stenosis, recently diagnosed with herpes zoster of the right ch est wall, who was brought in for acute weakness on the left and slurring of speech and confusion and found to have multiple acute ischemic lacunar infarcts. Acute ischemic Strokes -MRI shows Several small recent acute/subacute appearing lacunar infarcts including in the left parietal lateral subcortical white matter, right caudate and putaminal region, and left globus pallidus/putaminal junction -MRA showed 1. Mild right vertebral artery atherosclerotic disease and mild to moderate stenosis with the right vertebral artery terminating in the PICA branch. 2. 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 3. Moderate left MCA M2 branch stenosis. Mild right MCA stenosis. 4. Severe stenosis/near occlusion within the right [employer] P2 segment in the ambient cistern on image 1 series 901 for a short segment of a couple mm. -Carotid doppler < 50% occlusion in both sides. -Bubble study negative -telemetry no arrhythmias till now. -Discussed with Dr Portillo. He thinks that these are embolic strokes -will need double antiplatelet and statin -started on ASA and Plavix and statin. -Will need referral to Cardiology for assessment for loop recorder placement. He is [facility] so may need referral [facility] for specialist visits. -PT/OT deemed him appropriate for home discharge Cervical spinal stenosis -moderate to severe. Now with difficulty in ambulation -had cervical surgeries in the past -PT/OT, fall precautions. DM -hypoglycemic -hold all antidiabetic meds Persistent Hypoglycemia a1c 6.1. As per daughter used to be over 9.0 a few months prior -Has been having low appetite for at least 2 months and has lost weight more than 10 lbs. Used to be 180 lbs. -Continue 50% dextrose 25 ml q 4 hours with hold parameters. ypertension -will allow permissive hypertension of SBP 140 to 180 -Bp remains in appropriate range -not on any medications at present Herpes Zoster of the right chest wall -started on valcyclovir on 09/25/20 will continue. -also on cephalexin for secondary infection will continue. VS,Fishbone, I+O VS, Fishbone, I+O Laboratory Tests 09/30/20 06:47 Vital Signs Date Time Temp Pulse Resp B/P (MAP) Pulse Ox O2 Delivery O2 Flow Rate FiO2 09/30/20 06:00 96.5 83 18 154/77 (102) 98 Room Air I&O- Last 24 Hours up to 6 AM 09/30/20 06:00 Intake Total 2049 ml Output Total 950 ml Balance 1100 ml TYLER TORRES MD Sep 30, 2020 08:02
== END 2020-09-30 17:37 | disposition home health service (06) | DRG 66 ==
LOC: M ED 15:16 → M ED INP 18:12 → M MSPAV 21:45 → OBSVTOIN 09-27 20:42
PROVIDERS: ADMIT Internal Medicine Nephrology; ATTEND Internal Medicine
DX: I63.81 Other cerebral infarction due to occlusion or stenosis of small artery (principal); E11.649 Type 2 diabetes mellitus with hypoglycemia without coma; I10 Essential (primary) hypertension; N40.0 Benign prostatic hyperplasia without lower urinary tract symptoms; I25.10 Atherosclerotic heart disease of native coronary artery without angina pectoris; M48.02 Spinal stenosis, cervical region; B02.9 Zoster without complications; Z79.899 Other long term (current) drug therapy; Z95.828 Presence of other vascular implants and grafts; Z87.891 Personal history of nicotine dependence

== ENCOUNTER 2020-10-05 10:03 | Emergency (ER) | payer OTHER, MEDICARE ==
[~2020-10-05] VITALS: Ht 177.8 cm; Wt 75.9 kg
[~2020-10-05 10:03] MED LIST: ASPI81CH8 PEG; ATOR1TAB21 PO; CEPH500C PO; CLOP75TA2 PO; VALA1TAB5 PO
[2020-10-05] MEDS ORDERED: NS 1,000 ML IV ONE (11:25)
[2020-10-05 11:52] LABS: VENOUS BASE EXCESS -3.1 (-2.0-2.0); VENOUS HCO3 21.8 MEQ/L (23.0-27.0); VENOUS O2 SATURATION 80.4 % (60.0-80.0); VENOUS PARTIAL PRESSURE CO2 38.3 mmHg (38.0-50.0); VENOUS PARTIAL PRESSURE O2 46.9 mmHg (30.0-50.0); VENOUS PH 7.373 UNITS (7.330-7.430); VENOUS STANDARD HCO3 21.6 MEQ/L
[2020-10-05 11:57] LABS: BASO % 0.4 % (0.0-1.0); EOS % 0.1 % (0.0-3.0); HEMATOCRIT 23.9 % (42.0-52.0); HEMOGLOBIN 8.3 g/dl (13.5-17.5); LYMPH # 0.6 10^3/uL (1.5-5.0); LYMPH % 5.5 % (24.0-44.0); MEAN CORPUSCULAR HEMOGLOBIN 31.4 pg (27.0-33.0); MEAN CORPUSCULAR HGB CONC 34.7 g/dl (32.0-36.5); MEAN CORPUSCULAR VOLUME 90.5 fl (80.0-96.0); MONO # 0.6 10^3/uL (0.0-0.8); MONO % 4.9 % (2.0-8.0); NEUTROPHILS % 88.2 % (36.0-66.0); PLATELET COUNT, AUTOMATED 329 10^3/uL (150-450); RED BLOOD COUNT 2.64 10^6/uL (4.30-6.10); WHITE BLOOD COUNT 11.3 10^3/uL (4.0-10.0)
[2020-10-05 12:08] LABS: INR 1.1; PROTHROMBIN TIME 14.4 SECONDS (12.5-14.3)
[2020-10-05 12:11] LABS: D-DIMER QUANT 665.86 ng/ml (<500)
[2020-10-05] MEDS ORDERED: ASPIRIN 81 MG CHEW TABLET PO ONE (12:15)
--- NOTE | 2020-10-05 12:30 | REPVR ---
PROCEDURE INFORMATION: Exam: CT Head Without Contrast Exam date and time: 10/05/2020 12:05 PM Age: 75 years old Clinical indication: Syncope and collapse TECHNIQUE: Imaging protocol: Computed tomography of the head without contrast. Radiation optimization: All CT scans at this facility use at least one of these dose optimization techniques: automated exposure control; mA and/or kV adjustment per patient size (includes targeted exams where dose is matched to clinical indication); or iterative reconstruction. COMPARISON: CT Head without contrast 09/26/2020 3:44 PM FINDINGS: Brain: The brain demonstrates diffuse volume loss. There is white matter hypodensity most consistent with chronic small vessel ischemic change. There are small foci of low attenuation in the basal ganglia bilaterally related to chronic lacunar infarctions. There is no acute parenchymal hemorrhage. Cerebral ventricles: The ventricles and CSF spaces are prominent related generalized volume loss, commensurate with age. Bones/joints: No acute fracture. Paranasal sinuses: Visualized sinuses are unremarkable. No fluid levels. Mastoid air cells: Visualized mastoid air cells are well aerated. Soft tissues: Unremarkable. IMPRESSION: 1. No sequela of acute intracranial trauma. 2. Stable sequela of ischemic disease. Electronically signed by: Eliazar Barclay On 10/05/2020 12:30:50 PM
--- NOTE | 2020-10-05 12:35 | REPVR ---
PROCEDURE INFORMATION: Exam: CT Cervical Spine Without Contrast Exam date and time: 10/05/2020 12:05 PM Age: 75 years old Clinical indication: Other: Syncope TECHNIQUE: Imaging protocol: Computed tomography images of the cervical spine without contrast. Radiation optimization: All CT scans at this facility use at least one of these dose optimization techniques: automated exposure control; mA and/or kV adjustment per patient size (includes targeted exams where dose is matched to clinical indication); or iterative reconstruction. COMPARISON: No relevant prior studies available. FINDINGS: Bones/joints: There are postoperative changes from anterior decompression and fusion at C3-C4 and C6-C7. Prior fusions may have been performed at the intervening levels. There is lucency surrounding the C3 and C4 screws consistent with loosening. 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 It is demonstrated from C4 through C7 however. Straightening of the normal cervical lordosis is an expected postoperative finding. There is no acute fracture or subluxation. Discs/Spinal canal/Neural foramina: No significant disc protrusion. No severe spinal canal stenosis. No significant neural foraminal narrowing. Lungs: Lung apices are normal. Vasculature: There is atherosclerotic disease of carotid arteries not fully assessed. Soft tissues: Unremarkable. IMPRESSION: 1. 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 2. There is no acute fracture or subluxation. Electronically signed by: Eliazar Barclay On 10/05/2020 12:35:50 PM
[2020-10-05 12:53] LABS: ALBUMIN 2.7 GM/DL (3.2-5.2); BILIRUBIN,DIRECT 0.2 MG/DL (0.0-0.2); BILIRUBIN,TOTAL 0.4 MG/DL (0.2-1.0); CK-MB VALUE MASS 13.7 NG/ML (<3.6); FREE T4 1.43 NG/DL (0.76-1.46); MB/CK RELATIVE INDEX 9.07 (< OR =4); PHOSPHORUS LEVEL 2.6 MG/DL (2.5-4.9); THYROID STIMULATING HORMONE 1.17 uIU/ML (0.358-3.740); TOTAL PROTEIN 5.6 GM/DL (6.4-8.2); TROPONIN I 3.33 NG/ML (< 0.10)
--- NOTE | 2020-10-05 12:53 | REP ---
INDICATION: CHEST PAIN. COMPARISON: 05/24/2012. The TECHNIQUE: Upright AP and lateral chest three views with the patient sitting. FINDINGS: The lung alexander are clear. Cardiac size is normal. The ethel, mediastinum and skeletal structures are unremarkable. IMPRESSION: Essentially negative AP and lateral chest <Electronically signed by Yuri Ochoa > 10/05/20 [id number]
[2020-10-05 13:04] LABS: RSV AMPLIFICATION NEGATIVE (NEGATIVE)
[2020-10-05 13:22] LABS: HEMOGLOBIN A1c 6.5 %
[2020-10-05 14:16] VITALS: BP 131/74
--- NOTE | 2020-10-05 19:25 | ECGEPIP ---
[facility] [place] - ED Test Date: 2020-10-05 Pat Name: NATY KASPER Department: Room: - Gender: Male Reading Interventionist: JOÃO : 1945 Requested By: Hayley Vieyra Order Number: [id number] Reading MD: Hayley Vieyra Measurements Intervals [place] Rate: 98 P: 66 WA: 156 QRS: -9 QRSD: 82 T: 29 QT: 384 QTc: 490 Interpretive Statements Sinus rhythm with occasional premature ventricular complexes Marked ST abnormality, possible anterior subendocardial injury Prolonged QT cw 09/26/[address] depression V3-V6 rule out acute coronary syndrome CLINICAL CORRELATION ADVISED Electronically Signed on 10-05-2020 19:24:52 EDT by Hayley Vieyra
== END 2020-10-05 14:22 | disposition short-term general hospital (02) ==
LOC: EDBD 10:03 → M ED 10:03
DX: I21.4 Non-ST elevation (NSTEMI) myocardial infarction (principal); D64.9 Anemia, unspecified; R19.7 Diarrhea, unspecified; M43.22 Fusion of spine, cervical region; I67.82 Cerebral ischemia; E11.9 Type 2 diabetes mellitus without complications; I10 Essential (primary) hypertension; Z95.5 Presence of coronary angioplasty implant and graft; Z86.73 Personal history of transient ischemic attack (TIA), and cerebral infarction without residual deficits; F43.10 Post-traumatic stress disorder, unspecified; Z79.82 Long term (current) use of aspirin; Z79.899 Other long term (current) drug therapy

== ENCOUNTER → 2020-12-24 | Outpatient (CLI) | payer OTHER ==
--- NOTE | 2020-12-24 16:47 | REP ---
INDICATION: ACUTE POST HEMORRHAGIC ANEMIA. COMPARISON: None. TECHNIQUE: The procedure was performed by Dorys Koo [facility], under the direct supervision of Dr. Rosen. The procedure was performed with Macie Leo from speech pathology present. 5 ml aliquots of thin, pudding, mixed fruit, soft food, hard food and pill consistency barium was administered. FINDINGS: Penetration and aspiration were visualized. The detailed report of this examination will be provided by speech pathology. IMPRESSION: Penetration and aspiration were visualized, a detailed report will be provided by speech pathology. 2.2 minutes of fluoroscopy time was utilized for this procedure. Some fluoroscopic images are performed with last image hold technology. These images require no additional radiation <Electronically signed by Dorys Koo > 12/24/20 1524 <Electronically signed by Yuri Rosen > 12/24/20 [id number]
== END ==
LOC: M ST 13:52
PROVIDERS: ATTEND Internal Medicine Gastroenterology
DX: D62 Acute posthemorrhagic anemia (principal)

== ENCOUNTER → 2020-12-26 | Outpatient (CLI) | payer OTHER ==
--- NOTE | 2020-12-26 14:50 | REP ---
INDICATION: ANEMIA. COMPARISON: None TECHNIQUE: This procedure was performed by Dorys Koo [facility], under the direct supervision of Dr. Rosen. Images were reviewed with Dr. Rosen prior to dictation. Liquid barium and gas producing crystals were given in the erect position, as well as liquid barium in the prone oblique position in order to perform a double contrast esophagram examination. FINDINGS: A single view PA chest x-ray is submitted as a benefits officer film. The superior mediastinal structures are midline. The heart size is within normal limits. The lungs are clear. The oral and pharyngeal stages of deglutition were unremarkable. Esophageal transport is prompt and efficient and there is no evidence of esophagitis, stricture, or mucosal ring. There is evidence of a small hiatal hernia. Gastroesophageal reflux was visualized to the level of the thoracic inlet. IMPRESSION: 1. Small hiatal hernia. 2. Gastroesophageal reflux to the level of the thoracic inlet. 0.3 minutes of fluoroscopy time was utilized for this procedure. Some fluoroscopic images are performed with last image hold technology. These images require no additional radiation. <Electronically signed by Dorys Koo > 12/26/20 1402 <Electronically signed by Yuri Rosen > 12/26/20 [id number]
== END ==
LOC: M RAD 09:14
PROVIDERS: ATTEND Internal Medicine Gastroenterology
DX: D64.9 Anemia, unspecified (principal)

== ENCOUNTER → 2021-06-19 | Outpatient (CLI) | payer OTHER | LOC: M RAD 12:27 | PROVIDERS: ATTEND Nurse Practitioner Family | DX: E04.1 Nontoxic single thyroid nodule (principal) ==

== ENCOUNTER 2022-05-05 14:58 | Emergency (ER) | payer OTHER ==
[~2022-05-05] VITALS: Ht 165.1 cm; Wt 74.7 kg
[2022-05-05] MEDS ORDERED: ASPIRIN 81 MG CHEW TABLET PO ONE (16:35)
[2022-05-05 17:29] LABS: BASO # 0.1 10^3/uL (0.0-0.2); BASO % 0.6 % (0.0-1.0); EOS # 0.2 10^3/uL (0.0-0.5); EOS % 1.6 % (0.0-3.0); HEMATOCRIT 32.3 % (42.0-52.0); HEMOGLOBIN 10.6 g/dl (13.5-17.5); LYMPH # 1.2 10^3/uL (1.5-5.0); LYMPH % 12.1 % (24.0-44.0); MEAN CORPUSCULAR HEMOGLOBIN 30.5 pg (27.0-33.0); MEAN CORPUSCULAR HGB CONC 32.8 g/dl (32.0-36.5); MEAN CORPUSCULAR VOLUME 92.8 fl (80.0-96.0); MONO % 9.8 % (2.0-8.0); NEUTROPHILS # 7.4 10^3/uL (1.5-8.5); NEUTROPHILS % 75.2 % (36.0-66.0); PLATELET COUNT, AUTOMATED 272 10^3/uL (150-450); RED BLOOD COUNT 3.48 10^6/uL (4.30-6.10); WHITE BLOOD COUNT 9.8 10^3/uL (4.0-10.0)
[2022-05-05 17:43] LABS: INR 1.02; PROTHROMBIN TIME 13.6 SECONDS (12.5-14.5)
[2022-05-05 17:52] LABS: RSV AMPLIFICATION NEGATIVE (NEGATIVE)
[2022-05-05 17:57] LABS: CALCIUM LEVEL 8.8 MG/DL (8.8-10.2); CREATININE FOR GFR 1.46 MG/DL (0.70-1.30); GLOMERULAR FILTRATION RATE 50.1 (>42)
[2022-05-05 18:21] LABS: CK-MB VALUE MASS < 1.0 NG/ML (<3.6); CPK CREATINE PHOSPHOKINASE 46 U/L (39-308); MB/CK RELATIVE INDEX 2.17 (< OR =4)
[2022-05-05] MEDS ORDERED: HEPARIN SOD (PORCINE) 5000UNITS/ML 1ML VIAL/SYRINGE IV PRN (19:35)
[2022-05-05] MEDS ORDERED: HEPARIN SOD (PORCINE) 5000UNITS/ML 1ML VIAL/SYRINGE IV ONE (19:35)
[2022-05-05] MEDS: HEPARIN DRIP 25,000 UNITS in IV 1 EA IV SCH (20:37)
[2022-05-05 21:06] LABS: PARTIAL THROMBOPLASTIN TIME 29.5 SECONDS (24.8-34.2)
[2022-05-06] MEDS: HEPARIN DRIP 25,000 UNITS in IV 1 EA IV SCH (06:50)
[2022-05-06 10:08] VITALS: BP 132/67
== END 2022-05-06 10:13 | disposition short-term general hospital (02) ==
LOC: M ED 14:58
DX: I21.4 Non-ST elevation (NSTEMI) myocardial infarction (principal); R00.0 Tachycardia, unspecified; I11.9 Hypertensive heart disease without heart failure; N40.0 Benign prostatic hyperplasia without lower urinary tract symptoms; Z87.891 Personal history of nicotine dependence
CPT/HCPCS: 71045; 80048; 82550; 82553; 84484; 85025; 85610; 85730; 87631; 93005; 93041; 94760; 96365; 96366; 96367; 99285; J1644

== ENCOUNTER → 2022-10-13 | Outpatient (CLI) | payer MEDICARE, OTHER | LOC: M RAD 13:16 | PROVIDERS: ATTEND Family Medicine | DX: E04.1 Nontoxic single thyroid nodule (principal) ==

== ENCOUNTER 2024-08-02 11:51 | Inpatient (IN) | payer OTHER, MEDICARE ==
[~2024-08-02] VITALS: Ht 177.8 cm; Wt 79.0 kg
[2024-08-02 12:28] LABS: VENOUS BASE EXCESS -5.5 (-2.0-2.0); VENOUS HCO3 20.4 MMOL/L (23.0-27.0); VENOUS O2 SATURATION 68.4 % (60.0-80.0); VENOUS PARTIAL PRESSURE CO2 41.5 mmHg (38.0-50.0); VENOUS PARTIAL PRESSURE O2 37.2 mmHg (30.0-50.0); VENOUS STANDARD HCO3 19.3 MMOL/L; VENOUS TOTAL CO2 21.7 MMOL/L (24.0-28.0)
[2024-08-02 12:39] LABS: BASO # 0.1 10^3/uL (0.0-0.2); EOS # 0.2 10^3/uL (0.0-0.5); EOS % 2.5 % (0.0-3.0); HEMATOCRIT 37.8 % (42.0-52.0); HEMOGLOBIN 12.7 g/dl (13.5-17.5); LYMPH # 1.5 10^3/uL (1.5-5.0); MEAN CORPUSCULAR HEMOGLOBIN 30.9 pg (27.0-33.0); MEAN CORPUSCULAR HGB CONC 33.6 g/dl (32.0-36.5); MONO # 0.8 10^3/uL (0.0-0.8); NEUTROPHILS # 6.6 10^3/uL (1.5-8.5); NEUTROPHILS % 71.2 % (36.0-66.0); PLATELET COUNT, AUTOMATED 223 10^3/uL (150-450); RED BLOOD COUNT 4.11 10^6/uL (4.30-6.10); WHITE BLOOD COUNT 9.2 10^3/uL (4.0-10.0)
[2024-08-02 13:01] LABS: ALBUMIN 3.8 G/DL (3.2-5.2); BILIRUBIN,DIRECT 0.2 MG/DL (<0.4); BILIRUBIN,TOTAL 0.6 MG/DL (0.3-1.2); CALCIUM LEVEL 9.5 MG/DL (8.3-10.6); CREATININE FOR GFR 1.46 MG/DL (0.70-1.30); GLOMERULAR FILTRATION RATE 49.8 (>42); POTASSIUM SERUM 4.8 MMOL/L (3.5-5.1)
[2024-08-02 13:03] LABS: THYROID STIMULATING HORMONE 4.247 uIU/ML (0.55-4.78)
[2024-08-02 15:36] LABS: KETONE, URINE MANUAL REFLEX NEGATIVE (NEGATIVE); NITRITE, URINE MANUAL RFX NEGATIVE (NEGATIVE); PROTEIN, URINE MANUAL REFLEX TRACE mg/dL (NEGATIVE); UROBILINOGEN, UA MANUAL REFLEX NORMAL (NORMAL)
[2024-08-02 16:01] LABS: HYALINE CAST, URINE RFX NONE SEEN /lpf (0-1); MICROSCOPIC EXAM RFX PERFORMED; RBC, URINE MAN REFLEX 0-1 /hpf (0-3); SQUAMOUS EPITHELIAL URINE RFX NONE SEEN /hpf (SMALL AMT); WBC, URINE MAN RFX 0-1 /hpf (0-3)
[2024-08-02] MEDS ORDERED: PANT40TA29 PO (16:23)
[2024-08-02] MEDS ORDERED: ZOLO100T PO (16:23)
[2024-08-02] MEDS ORDERED: QUET100T2 PO (16:23)
[2024-08-02] MEDS ORDERED: JARD1TAB3 PO (16:23)
[2024-08-02] MEDS ORDERED: METO1TAB7 PO (16:23)
[2024-08-02] MEDS ORDERED: ASPI81TA26 PO (16:23)
[2024-08-02] MEDS ORDERED: ATOR40TA75 PO (16:23)
[2024-08-02] MEDS ORDERED: MEMA1TAB3 PO (16:23)
[2024-08-02] MEDS ORDERED: FERR324T2 PO (16:23)
[2024-08-02] MEDS ORDERED: LISI5TAB11 PO (16:23)
[2024-08-02] MEDS ORDERED: HOME MED LIST COMPLETE! XX SCH (16:25)
[2024-08-02] MEDS: PANTOPRAZOLE 40MG TAB (PROTONIX) PO SCH (21:40)
[2024-08-02] MEDS: QUEtiapine FUMARATE 100 MG TAB PO SCH (21:40)
[2024-08-02] MEDS: MEMANTINE 5MG TABLET (NAMENDA) PO SCH (21:40)
[2024-08-02] MEDS: ATORVASTATIN 20 MG TAB PO SCH (21:40)
[2024-08-03] MEDS: SERTRALINE 100 MG TAB PO SCH (10:21)
[2024-08-03] MEDS: ASPIRIN 81MG ENTERIC TABLET PO SCH (10:21)
[2024-08-03] MEDS: lisinopriL 5 MG TAB PO SCH (10:22)
[2024-08-03] MEDS: METOPROLOL SUCC (TopROL XL) 50MG **XL** TAB PO SCH (10:22)
[2024-08-03 11:58] LABS: BASO # 0.1 10^3/uL (0.0-0.2); BASO % 0.9 % (0.0-1.0); EOS # 0.1 10^3/uL (0.0-0.5); EOS % 0.6 % (0.0-3.0); HEMOGLOBIN 12.3 g/dl (13.5-17.5); LYMPH # 0.9 10^3/uL (1.5-5.0); MEAN CORPUSCULAR HEMOGLOBIN 31.5 pg (27.0-33.0); MEAN CORPUSCULAR HGB CONC 33.2 g/dl (32.0-36.5); MEAN CORPUSCULAR VOLUME 94.6 fl (80.0-96.0); MONO # 0.7 10^3/uL (0.0-0.8); MONO % 7.9 % (2.0-8.0); NEUTROPHILS # 7.2 10^3/uL (1.5-8.5); NEUTROPHILS % 80.3 % (36.0-66.0); PLATELET COUNT, AUTOMATED 214 10^3/uL (150-450); RED BLOOD COUNT 3.91 10^6/uL (4.30-6.10); WHITE BLOOD COUNT 8.9 10^3/uL (4.0-10.0)
[2024-08-03 12:23] LABS: CREATININE FOR GFR 1.28 MG/DL (0.70-1.30); POTASSIUM SERUM 5.3 MMOL/L (3.5-5.1)
[2024-08-03 14:55] VITALS: BP 115/70; TEMP 97.5; O2SAT 98
[2024-08-03] MEDS: RIVAROXABAN 10MG TAB (XARELTO) PO SCH (17:47)
[2024-08-03 20:25] VITALS: BP 115/70; TEMP 97.3; O2SAT 97
[2024-08-04 06:37] LABS: INR 1.54; PARTIAL THROMBOPLASTIN TIME 40.5 SECONDS (24.8-34.2); PROTHROMBIN TIME 18.7 SECONDS (12.5-14.5)
[2024-08-04 12:00] VITALS: BP 124/71; TEMP 97.3; O2SAT 97
[2024-08-04 19:19] VITALS: BP 129/57; TEMP 97; O2SAT 98
[2024-08-05 04:00] VITALS: BP 134/66; TEMP 97.3; O2SAT 98
[2024-08-05 12:00] VITALS: BP 138/68; TEMP 97.5; O2SAT 98
[2024-08-05 20:02] VITALS: BP 134/68; TEMP 97.3; O2SAT 97
[2024-08-05] MEDS ORDERED: ACETAMINOPHEN 325 MG TAB PO PRN (22:15)
[2024-08-05] MEDS: ACETAMINOPHEN 500 MG TAB PO PRN (22:28)
[2024-08-05] MEDS: LIDOCAINE 5% (LIDODERM) PATCH TD SCH (22:29)
[2024-08-06 03:50] VITALS: BP 117/52; TEMP 97.3; O2SAT 96
[2024-08-06 12:00] VITALS: BP 114/53; TEMP 97.2; O2SAT 99
[2024-08-06 20:40] VITALS: BP 136/62; TEMP 97.5; O2SAT 98
[2024-08-06] MEDS ORDERED: QUEtiapine FUMARATE 25 MG TAB PO SCH (21:00)
[2024-08-06] MEDS: QUEtiapine FUMARATE 50MG TAB PO SCH (21:24)
[2024-08-06] MEDS: NS 500 ML IV ONE (22:05)
[2024-08-07 04:00] VITALS: BP 140/72; TEMP 97.7; O2SAT 100
[2024-08-07 06:07] LABS: BASO # 0.1 10^3/uL (0.0-0.2); BASO % 0.6 % (0.0-1.0); EOS # 0.3 10^3/uL (0.0-0.5); EOS % 2.4 % (0.0-3.0); HEMATOCRIT 32.9 % (42.0-52.0); HEMOGLOBIN 11.3 g/dl (13.5-17.5); LYMPH # 1.2 10^3/uL (1.5-5.0); LYMPH % 11.6 % (24.0-44.0); MEAN CORPUSCULAR HEMOGLOBIN 31.5 pg (27.0-33.0); MEAN CORPUSCULAR HGB CONC 34.3 g/dl (32.0-36.5); MEAN CORPUSCULAR VOLUME 91.6 fl (80.0-96.0); MONO # 1.1 10^3/uL (0.0-0.8); MONO % 10.9 % (2.0-8.0); NEUTROPHILS # 7.7 10^3/uL (1.5-8.5); NEUTROPHILS % 74.1 % (36.0-66.0); PLATELET COUNT, AUTOMATED 199 10^3/uL (150-450); RED BLOOD COUNT 3.59 10^6/uL (4.30-6.10); WHITE BLOOD COUNT 10.4 10^3/uL (4.0-10.0)
[2024-08-07 06:30] LABS: CREATININE FOR GFR 1.49 MG/DL (0.70-1.30); GLOMERULAR FILTRATION RATE 48.7 (>42); POTASSIUM SERUM 4.2 MMOL/L (3.5-5.1)
[2024-08-07 12:00] VITALS: BP 139/70; TEMP 97.7; O2SAT 98
[2024-08-07 20:00] VITALS: BP 132/71; TEMP 97.9; O2SAT 96
[2024-08-08 04:02] VITALS: BP 131/73; TEMP 97.7; O2SAT 99
[2024-08-08 06:17] LABS: HEMATOCRIT 33.4 % (42.0-52.0); MEAN CORPUSCULAR HGB CONC 32.9 g/dl (32.0-36.5); MEAN CORPUSCULAR VOLUME 94.1 fl (80.0-96.0); PLATELET COUNT, AUTOMATED 203 10^3/uL (150-450); RED BLOOD COUNT 3.55 10^6/uL (4.30-6.10); WHITE BLOOD COUNT 10.6 10^3/uL (4.0-10.0)
[2024-08-08 06:51] LABS: ALBUMIN 2.9 G/DL (3.2-5.2); BILIRUBIN,TOTAL 0.8 MG/DL (0.3-1.2); CALCIUM LEVEL 8.6 MG/DL (8.3-10.6); CREATININE FOR GFR 1.53 MG/DL (0.70-1.30); GLOMERULAR FILTRATION RATE 47.2 (>42); POTASSIUM SERUM 4.6 MMOL/L (3.5-5.1); TOTAL PROTEIN 6.2 G/DL (5.7-8.2)
[2024-08-08] MEDS: NS (Normal Saline) 0.9% 1,000 ML IV SCH (07:58)
[2024-08-08] MEDS: LACTOBACILLUS ACIDOPHILUS CAP (BACID) PO SCH (08:00)
[2024-08-08 08:06] LABS: CHOLESTEROL RISK RATIO 2.3 (<5); HDL CHOLESTEROL 50.3 MG/DL (>40); LDL CHOLESTEROL 53.7 MG/DL (<100); NON-HDL-C 65.7 MG/DL
[2024-08-08] MEDS ORDERED: CLINDAMYCIN 300 MG in IV 1 EA IV SCH (09:45)
[2024-08-08] MEDS: CLOPIDOGREL 75 MG TAB PO SCH (10:55)
[2024-08-08] MEDS: predniSONE 20 MG TAB PO SCH (10:55)
[2024-08-08] MEDS: CLINDAMYCIN 600 MG in IV 1 EA IV SCH (11:56)
[2024-08-08 12:11] VITALS: BP 134/72; TEMP 97.5; O2SAT 96
[2024-08-08 20:22] VITALS: BP 135/71; TEMP 97.5; O2SAT 97
[2024-08-08] MEDS ORDERED: GLUCAGON INJ 1MG VIAL SC PRN (20:25)
[2024-08-08] MEDS ORDERED: GLUCOSE 4 GM CHEW PO PRN (20:25)
[2024-08-08] MEDS ORDERED: DEXTROSE 50% 50ML SYRINGE IV PRN (20:25)
[2024-08-08] MEDS: INSULIN LISPRO (NovoLOG) PER UNIT SC SCH (20:44)
[2024-08-08] MEDS: ATORVASTATIN 20 MG TAB PO SCH (20:45)
[2024-08-09] VITALS (23 sets, daily range): BP systolic 120–168; BP diastolic 58–117; TEMP 97–97.5; O2SAT 74–100
[2024-08-09 06:33] LABS: HEMATOCRIT 31.1 % (42.0-52.0); HEMOGLOBIN 10.1 g/dl (13.5-17.5); MEAN CORPUSCULAR HEMOGLOBIN 30.6 pg (27.0-33.0); MEAN CORPUSCULAR HGB CONC 32.5 g/dl (32.0-36.5); MEAN CORPUSCULAR VOLUME 94.2 fl (80.0-96.0); PLATELET COUNT, AUTOMATED 201 10^3/uL (150-450); WHITE BLOOD COUNT 10.5 10^3/uL (4.0-10.0)
[2024-08-09] MEDS ORDERED: traMADol 50 MG TAB PO PRN (07:30)
[2024-08-09 08:20] LABS: ALBUMIN 2.6 G/DL (3.2-5.2); BILIRUBIN,TOTAL 0.3 MG/DL (0.3-1.2); CALCIUM LEVEL 8.5 MG/DL (8.3-10.6); CREATININE FOR GFR 1.25 MG/DL (0.70-1.30); GLOMERULAR FILTRATION RATE 59.6 (>42); POTASSIUM SERUM 4.7 MMOL/L (3.5-5.1)
[2024-08-09] MEDS: PERCOCET 5MG/325MG TAB PO PRN (08:37)
[2024-08-09] MEDS: INSULIN LISPRO (NovoLOG) PER UNIT SC SCH (08:38)
[2024-08-09] MEDS: LEVEMIR (INSULIN DETEMIR) 1 UNITS/0.01ML SC SCH (08:38)
[2024-08-09] MEDS: LEVEMIR (INSULIN DETEMIR) 1 UNITS/0.01ML SC ONE (13:55)
[2024-08-09] MEDS ORDERED: FUROSEMIDE 100MG/10ML VIAL IV SCH (17:00)
[2024-08-09] MEDS: ENOXAPARIN 30MG/0.3ML SYRINGE (J1650 PER 10MG) SC SCH (17:10)
[2024-08-09] MEDS: NS (Normal Saline) 0.9% 1,000 ML IV SCH (17:31)
[2024-08-09] MEDS ORDERED: ALBUTEROL SULFATE 2.5MG/0.5ML INH NEB SOLN NEB PRN (18:00)
[2024-08-09] MEDS: IPRATROPIUM 0.5MG/ALBUTEROL 2.5MG INH SOL UD 3ML (DUONEB) NEB SCH (18:53)
[2024-08-09 19:43] LABS: CK-MB VALUE MASS 2.3 NG/ML (<3.6)
[2024-08-09 19:44] LABS: MB/CK RELATIVE INDEX 1.71 (< OR =4)
[2024-08-09] MEDS: LEVALBUTEROL 1.25MG 0.5ML CONCENTRATE NEB INH SCH (19:58)
[2024-08-09 20:17] LABS: ABG BASE EXCESS -9.5 (-2.0-2.0); ABG PARTIAL PRESSURE CO2 24.7 mmHg (35.0-45.0); ABG PARTIAL PRESSURE O2 56.3 mmHg (75.0-100.0); ABG STANDARD HCO3 16.8 MMOL/L. (22.0-26.0); ABG TOTAL CO2 14.7 MMOL/L (23.0-31.0)
[2024-08-09] MEDS: FUROSEMIDE 40MG/4ML VIAL IV ONE ×2 (20:20→21:48)
[2024-08-09 20:41] LABS: BASO % 0.1 % (0.0-1.0); EOS % 0.1 % (0.0-3.0); HEMATOCRIT 37.8 % (42.0-52.0); LYMPH # 0.4 10^3/uL (1.5-5.0); LYMPH % 2.3 % (24.0-44.0); MEAN CORPUSCULAR HEMOGLOBIN 31.4 pg (27.0-33.0); MEAN CORPUSCULAR HGB CONC 33.3 g/dl (32.0-36.5); MEAN CORPUSCULAR VOLUME 94.3 fl (80.0-96.0); MONO # 0.5 10^3/uL (0.0-0.8); MONO % 3.1 % (2.0-8.0); NEUTROPHILS % 93.5 % (36.0-66.0); PLATELET COUNT, AUTOMATED 297 10^3/uL (150-450); RED BLOOD COUNT 4.01 10^6/uL (4.30-6.10)
[2024-08-09 20:42] LABS: HEMOGLOBIN 12.6 g/dl (13.5-17.5)
[2024-08-09] MEDS: methylPREDNISolone 125MG 2ML VIAL IV ONE (21:48)
[2024-08-09] MEDS ORDERED: AMIODARONE HCL 360 MG/200 ML PREMIXED BAG (NEXTERONE) As Ordered ONE (21:50)
[2024-08-09] MEDS ORDERED: AMIODARONE HCL 150 MG/100 ML PREMIXED BAG (NEXTERONE) As Ordered ONE (21:51)
[2024-08-09] MEDS: AMIODARONE HCL 150 MG in IV 1 EA IV ONE (21:54)
[2024-08-09] MEDS ORDERED: fentaNYL CITRATE/NaCl 1,000 MCG in IV 1 EA IV SCH (21:55)
[2024-08-09] MEDS ORDERED: FENTANYL DRIP LOCK BOX KEY 1 EACH XX PRN (21:55)
[2024-08-09] MEDS ORDERED: MIDAZOLAM 100MG/100ML-0.9%NACL 100 MG in IV 1 EA IV SCH (21:55)
[2024-08-09 22:04] LABS: ABG BASE EXCESS -19.7 (-2.0-2.0); ABG HCO3 10.8 MMOL/L (22.0-26.0); ABG O2 SATURATION 89.7 % (95.0-99.0); ABG PARTIAL PRESSURE CO2 43.1 mmHg (35.0-45.0); ABG PARTIAL PRESSURE O2 79.4 mmHg (75.0-100.0); ABG STANDARD HCO3 10.1 MMOL/L. (22.0-26.0); ABG TOTAL CO2 12.2 MMOL/L (23.0-31.0)
[2024-08-09 22:05] LABS: ABG pH (ARTERIAL) 7.018 UNITS (7.350-7.450)
[2024-08-09 22:09] LABS: HEMATOCRIT 37.5 % (42.0-52.0); HEMOGLOBIN 11.8 g/dl (13.5-17.5); MEAN CORPUSCULAR HEMOGLOBIN 31.6 pg (27.0-33.0); MEAN CORPUSCULAR HGB CONC 31.5 g/dl (32.0-36.5); MEAN CORPUSCULAR VOLUME 100.3 fl (80.0-96.0); PLATELET COUNT, AUTOMATED 233 10^3/uL (150-450); RED BLOOD COUNT 3.74 10^6/uL (4.30-6.10); WHITE BLOOD COUNT 13.6 10^3/uL (4.0-10.0)
[2024-08-09 22:44] LABS: PROCALCITONIN 0.17 ng/ml
[2024-08-09 22:48] LABS: ALBUMIN 2.1 G/DL (3.2-5.2); ALKALINE PHOSPHATASE 57 U/L (40-129); ALT/SGPT 257 U/L (7.0-40); AST/SGOT 284 U/L (<34); BILIRUBIN,DIRECT < 0.1 MG/DL (<0.4); BILIRUBIN,TOTAL 0.2 MG/DL (0.3-1.2); BLOOD UREA NITROGEN 58 MG/DL (9-23); CALCIUM LEVEL 10.9 MG/DL (8.3-10.6); CARBON DIOXIDE LEVEL 15 MMOL/L (20-31); CHLORIDE LEVEL 104 MMOL/L (98-107); CREATININE FOR GFR 1.68 MG/DL (0.70-1.30); GLOMERULAR FILTRATION RATE 42.4 (>42); GLUCOSE, FASTING 574 MG/DL (74-106); MAGNESIUM LEVEL 3.3 MG/DL (1.8-2.4); PHOSPHORUS LEVEL 8.2 MG/DL (2.4-5.1); POTASSIUM SERUM 4.3 MMOL/L (3.5-5.1); SODIUM LEVEL 139 MMOL/L (136-145); TOTAL PROTEIN 5.7 G/DL (5.7-8.2)
[2024-08-09 22:57] LABS: CK-MB VALUE MASS 12.4 NG/ML (<3.6)
[2024-08-09 23:14] LABS: MB/CK RELATIVE INDEX 2.98 (< OR =4)
[2024-08-10] MEDS ORDERED: LEVEMIR (INSULIN DETEMIR) 1 UNITS/0.01ML SC SCH (09:00)
[2024-08-10] MEDS ORDERED: FUROSEMIDE 100MG/10ML VIAL IV SCH (09:00)
== END 2024-08-10 01:05 | disposition expired | DRG 64 ==
LOC: M ED 11:51 → EDBD 11:51 → INTOOBSV 08-03 10:03 → M ED INP 08-03 10:03 → M MSPAV 08-03 15:14 → OBSVTOIN 08-09 13:43 → M ICU 08-09 21:17
PROVIDERS: ADMIT Internal Medicine Nephrology; ATTEND Student in an Organized Health Care Education/Training Program
PROC: B246ZZZ Ultrasonography of Right and Left Heart (ICD-10-PCS; principal; 2024-08-08)
DX: I63.89 Other cerebral infarction (principal); J96.01 Acute respiratory failure with hypoxia; J69.0 Pneumonitis due to inhalation of food and vomit; G93.41 Metabolic encephalopathy; L03.113 Cellulitis of right upper limb; N17.9 Acute kidney failure, unspecified; R26.89 Other abnormalities of gait and mobility; E11.22 Type 2 diabetes mellitus with diabetic chronic kidney disease; I12.9 Hypertensive chronic kidney disease with stage 1 through stage 4 chronic kidney disease, or unspecified chronic kidney disease; F01.50 Vascular dementia, unspecified severity, without behavioral disturbance, psychotic disturbance, mood disturbance, and anxiety; F41.9 Anxiety disorder, unspecified; N18.30 Chronic kidney disease, stage 3 unspecified; F43.10 Post-traumatic stress disorder, unspecified; N40.0 Benign prostatic hyperplasia without lower urinary tract symptoms; I25.10 Atherosclerotic heart disease of native coronary artery without angina pectoris; L89.152 Pressure ulcer of sacral region, stage 2; M48.02 Spinal stenosis, cervical region; H91.93 Unspecified hearing loss, bilateral; M19.031 Primary osteoarthritis, right wrist; M19.021 Primary osteoarthritis, right elbow; M19.041 Primary osteoarthritis, right hand; F03.B0 Unspecified dementia, moderate, without behavioral disturbance, psychotic disturbance, mood disturbance, and anxiety; R07.9 Chest pain, unspecified; I66.29 Occlusion and stenosis of unspecified posterior cerebral artery; I46.9 Cardiac arrest, cause unspecified; M10.031 Idiopathic gout, right wrist; Z95.5 Presence of coronary angioplasty implant and graft; Z79.899 Other long term (current) drug therapy; Z79.82 Long term (current) use of aspirin